=== PATIENT | female | born 1985 | race Two or more races ===

== ENCOUNTER 2016-08-15 20:40 | Inpatient (IN) | payer OTHER ==
[2016-08-15 21:16] VITALS: BMI 36.8
[2016-08-15] MEDS ORDERED: IV START KIT ONE (23:12)
[2016-08-15] MEDS ORDERED: LIDOCAINE Viscous 2% 15 ML UDCUP ONE (23:12)
[2016-08-15] MEDS ORDERED: OXYTOCIN IN LR 500 ML IV ONE ×2 (23:12→23:18)
[2016-08-15] MEDS ORDERED: MINERAL OIL 25 ML BOT ONE (23:12)
[2016-08-15] MEDS ORDERED: PUMP TUBING ONE (23:12)
[2016-08-15] MEDS ORDERED: OXYTOCIN 10 UNITS/ML VIAL ONE (23:12)
[2016-08-15] MEDS ORDERED: LIDOCAINE 1% (PRES FREE) 30 ML VIAL ONE (23:12)
[2016-08-15] MEDS ORDERED: LACTATED RINGERS 1,000 ML ONE (23:12)
[2016-08-15] MEDS ORDERED: LACTATED RINGERS 1,000 ML IV PRN (23:18)
[2016-08-15 23:54] LABS: HEMATOCRIT 41.9 % (37.0-47.0); MEAN CELL VOLUME 94.6 fl (81.0-99.0); MEAN CORPUSCULAR HEMOGLOBIN 31.6 pg (27.0-31.0); MEAN CORPUSCULAR HGB CONC 33.4 g/dl (33.0-37.0); RED CELL DISTRIBUTION WIDTH 12.4 % (11.5-14.5)
--- NOTE | 2016-08-16 01:40 | PCMAN ---
OB Admission Note - History : 4 Term: 0 : 0 Abortions (S&E): 0 Livin EDC:: 08/14/16 Gestational Age (weeks): 40 Days (#/7): 2 Admit Cervical Dilation:: 5.5 Admit Cervical Effacement (%):: 80 Admit Station:: -1 Admit Presentaton:: cephalic Membrane Status: Bulging Labor Onset (Date): 08/16/16 Labor Onset (Time): 17:00 Contractions: Yes Contraction Frequency:: 1.5-3 Heart Rate:: 135 (mod kilo/+accels/no decels) Status:: Cat 1 EFW:: 8lb Summary of Course:: course: c/b 2 L ventricular foci on anatomy scan, normal echo per chart notes. OBHx 2001 38w [id number] 2006 40w [id number] 2009 40w [id number] Dating Hx LMP 10/09/15 PATTI 07/15/16 u/s 02/16/16 PATTI 08/14/16 u/s 04/19/16 PATTI 08/18/16 Meds: PNV Allergies: NKDA PSxH: none PMH: depression after 1st delivery - Labs Blood Type: O (+) positive Rubella Status: Immune GBS Status: Negative Abnormal Labs: None - Review of Systems Good FM, no LOF, VB, ctx No GUILLAUME, blurry vision, epigastric pain, edema - Physical Exam General: Afebrile Psych/Mental Status: Mood/Affect Appropriate, Judgment/Insight Intact Neurological: Grossly Intact, Alert HEENT: Atraumatic, EOMI Lungs: Clear to Auscultation Bilaterally, Normal Air Movement Cardiovascular: Regular Rate and Rhythm, Normal S1, Normal S2, No Murmur Extremities: Full ROM - Problems (1) Active labor at term Status: Acute Code: [id number] Assessment/Plan: 31 yo @ 40w2d, active labor 1. Labor: expectant management. Anticipate 2: FWB: Cat 1, overall reassuring. ok for intermittent monitoring 3. Pain: declines pain meds 4. GBS negative 5. BCM: OCPs 6. Peds: [facility]
--- NOTE | 2016-08-16 01:43 | PCMDEL ---
Delivery Note - Labor 1st stage (hr/min):: 8h17m 2nd stage (hr/min):: 1m 3rd stage (hr/min):: 4m Total (hr/min):: 8h22m Pushed (hr/min):: <1m - Delivery Delivery (Date): 08/16/16 Delivery (Time): 01:18 Infant Gender: Female Presentation: Cephalic Position: OA Umbilical Cord: 3 Vessel Delayed Cord Clamping:: 2-3 min 1 Minute Total: 9 5 Minute Total: 9 Placenta:: intact, approx 75cc clot noted in amniotic sac EBL:: 300cc Perineum:: midline superficial 1st degree lac, hemostatic so not repaired Suture:: none Anesthesia/Meds:: none Length ROM:: 47m Comments:: Uncomplicated over intact perineum. Vigorous female infant, placed on maternal abdomen. Cord clamping delayed by 2min and cut by FOB. A superficial 1st degree laceration was noted to be hemostatic so it was not repaired. Fundus firm, at umbilicus. Hemostasis confirmed. EBL 300cc.
[2016-08-16] MEDS ORDERED: LANOLIN 50 APPLIC/7G TUBE TP PRN (01:49)
[2016-08-16] MEDS ORDERED: HYDROCODONE/ACETAMINOPHEN 5/325MG TABLET PO PRN (01:49)
[2016-08-16] MEDS ORDERED: BENZOCAINE/MENTHOL 60 APPLIC/BOT TP PRN (01:49)
[2016-08-16] MEDS ORDERED: OXYCODONE HCL 5 MG TABLET PO PRN (01:49)
[2016-08-16] MEDS: IBUPROFEN 600 MG TABLET PO PRN ×2 (02:04→14:21)
[2016-08-16] MEDS: DOCUSATE SODIUM 100 MG CAPSULE PO PRN (18:08)
[2016-08-17] MEDS: IBUPROFEN 600 MG TABLET PO PRN ×3 (00:55→23:37)
[2016-08-17 07:08] LABS: HEMATOCRIT 36.7 % (37.0-47.0); HEMOGLOBIN 12.1 gm/l (12.0-16.0)
--- NOTE | 2016-08-17 09:38 | PDOC44 ---
- Subjective Day: 1 doing well. no concerns Reports Flatus, Reports Pain Tolerable, Reports , Reports Lochia Light - Objective Temp Pulse Resp BP Pulse Ox 96.8 F 72 16 103/55 08/17/16 08:20 08/17/16 08:20 08/17/16 08:20 08/17/16 08:20 Lab Results 08/17/16 06:00 Hgb 12.1 Hct 36.7 L Current Medications Generic Name Dose Route Start Last Admin Trade Name Freq PRN Reason Stop Dose Admin Acetaminophen/Hydrocodone Bitart 1 - 2 tab 08/16/16 01:49 [place] 5/325 PO Q4H PRN Pain (Moderate) Benzocaine/Menthol 1 applic 08/16/16 01:49 08/16/16 02:03 Dermoplast TP 1 bot PRN PRN Administration Patient Comfort Docusate Sodium 100 mg 08/16/16 01:49 08/16/16 18:08 Colace PO 100 mg DAILY PRN Administration Comfort Emollient Ointment 1 applic 08/16/16 01:49 08/16/16 02:03 [id number] TP 1 tube PRN PRN Administration sore nipples Ibuprofen 600 mg 08/16/16 01:49 08/17/16 00:55 Motrin PO 600 mg Q6H PRN Administration Pain (Mild) Oxycodone HCl 5 - 10 mg 08/16/16 01:49 Roxicodone PO Q3H PRN Pain (Severe) Sodium Chloride 10 ml 08/16/16 01:49 08/16/16 02:22 Normal Saline 10ml Flush IV 10 ml PRN PRN Administration IV Flush - Physical Exam General: Afebrile Psych/Mental Status: Mood/Affect Appropriate Neurological: Alert Lungs: Clear to Auscultation Bilaterally Cardiovascular: Regular Rate and Rhythm Breast: Soft Fundus: Firm, At Umbilicus Abdomen: Normal Bowel Sounds Extremities: Other (nt, no edema) Skin: Normal Color - Problems:Assessment/Plan (1) (normal spontaneous vaginal delivery) Status: Acute Assessment/Plan: doing well. wants to stay until tomorrow. Routine care. Disposition: Anticipate DC Home Tomorrow
[2016-08-17] MEDS: DOCUSATE SODIUM 100 MG CAPSULE PO PRN (18:53)
[2016-08-18] MEDS: IBUPROFEN 600 MG TABLET PO PRN (06:04)
[2016-08-18 08:19] VITALS: BP 97/64
--- NOTE | 2016-08-18 09:06 | PDOC39B ---
Hospital Course: ADMIT DATE: 08/15/16 DISCHARGE DATE: 08/18/16 ADMISSION DIAGNOSES: term iup, active labor PROCEDURES: HISTORY OF PRESENT ILLNESS: 31 year old G4 T0 L3 at 40 weeks 2 days presenting with active labor. HOSPITAL COURSE: The patient presented in active labor progressed quickly resulting in . By day of discharge the patient is ambulating, eating, voiding, and passing flatus without difficulty. Pain is controlled and lochia is appropriate. She is breast feeding. - Physical Exam Vital Signs: Temp Pulse Resp BP Pulse Ox 98 F 64 18 97/64 08/18/16 08:15 08/18/16 08:15 08/18/16 08:15 08/18/16 08:15 General: Afebrile, No Acute Distress Psych/Mental Status: Mood/Affect Appropriate, Bonding Well Lungs: Clear to Auscultation Bilaterally Cardiovascular: Regular Rate and Rhythm, No Murmur Breast: Soft, No Tenderness Fundus: Firm, Midline, At Umbilicus Abdomen: Normal Bowel Sounds Extremities: Edema (mild, 1+ble), No Tenderness Skin: Warm, Dry, No Erythema - Discharge Diagnosis (1) (normal spontaneous vaginal delivery) Status: Acute Assessment/Plan: doing well. DC home today. Routine care. - Discharge Plan Condition: Good Disposition: Home Instruction Forms: Vaginal Discharge Instructions Prescriptions: Docusate Sodium [Colace] 100 mg PO DAILY #30 cap Ibuprofen [IBUPROFEN 600 MG TABLET (SHF)] 1 tab PO Q6H PRN #30 tablet PRN Reason: Pain Follow-Up: Anali Kapoor MD [Primary Care Provider] - In 6 weeks
== END 2016-08-18 10:20 | disposition home or self-care (01) | DRG 775 ==
LOC: FBCOUT 20:40 → FBC 20:40 → FBCOUT 23:15 → FBC 23:15
PROVIDERS: ADMIT Family Medicine; ATTEND Family Medicine
PROC: 10E0XZZ Delivery of Products of Conception, External Approach (ICD-10-PCS; principal; 2016-08-16)
DX: O69.89X0 Labor and delivery complicated by other cord complications, not applicable or unspecified (principal); O70.0 First degree perineal laceration during delivery; Z86.59 Personal history of other mental and behavioral disorders; Z3A.40 40 weeks gestation of pregnancy; Z37.0 Single live birth

== ENCOUNTER 2016-08-20 15:45 | Outpatient (CLI) | payer OTHER | END 2016-08-20 15:46 | disposition home or self-care (01) | LOC: FBCOUT 15:45 → BABIESSH 15:46 | PROVIDERS: ATTEND Family Medicine | DX: Z39.1 Encounter for care and examination of lactating mother (principal) ==

== ENCOUNTER 2016-08-26 09:55 | Outpatient (CLI) | payer OTHER | END 2016-08-26 09:56 | disposition home or self-care (01) | LOC: BABIESSH 09:55 | PROVIDERS: ATTEND Family Medicine | DX: Z39.1 Encounter for care and examination of lactating mother (principal) ==

== ENCOUNTER 2016-09-05 10:11 | Outpatient (CLI) | payer OTHER | END 2016-09-05 10:12 | disposition home or self-care (01) | LOC: BABIESSH 10:11 | PROVIDERS: ATTEND Family Medicine | DX: Z39.1 Encounter for care and examination of lactating mother (principal) ==